=== PATIENT | female | born 2000 | race Caucasian/White ===

== ENCOUNTER 2025-01-23 00:02 | Emergency (ER) | payer OTHER ==
[2025-01-23 00:15] VITALS: TEMP 98.8; BMI 25.7
[2025-01-23] MEDS ORDERED: ACETAMINOPHEN INJECTION 100 ML ONE (00:58)
[2025-01-23] MEDS: morphine CARPU-JECT 4 MG/1 ML DISP.SYRIN IVPUSH ONE (01:46)
[2025-01-23] MEDS: ACETAMINOPHEN 1000 MG/100 ML BAG IVPB ONE (01:46)
[2025-01-23 01:50] LABS: ABSOLUTE IMMATURE GRANULOCYTES 0.03 x10^3/uL (0.0-0.031); BASOPHILS # 0.06 x10^3/uL (0.01-0.08); EOSINOPHIL % 0.4 % (0.7-5.8); EOSINOPHILS # 0.04 x10^3/uL (0.04-0.36); MCHC 33.7 g/dl (32.2-35.5); MEAN CELL VOLUME 91.2 fl (79.4-94.8); MEAN PLT VOLUME 10.8 fl (9.4-12.3); MONOCYTE # 0.79 x10^3/uL (0.24-0.86); MONOCYTE % 7.5 % (4.7-12.5); RDW 11.9 % (12.1-16.5)
[2025-01-23 02:07] LABS: GLUCOSE,RANDOM 89.0 mg/dL (74-106); TOT PROT 7.8 g/dl (6.4-8.2)
[2025-01-23 02:08] LABS: CO2 21.0 mmol/L (21-32); INR 1.17 (0.83-1.09); PROTHROMBIN TIME (PATIENT) 12.7 SEC (9.7-13.0)
[2025-01-23 02:10] LABS: ALK PHOS 77.0 U/L (40-150)
[2025-01-23 02:11] LABS: ACTIVATED PTT 28.1 SECONDS (25.2-36.5)
[2025-01-23 02:12] LABS: CREATININE 0.53 mg/dL (0.55-1.3); HCG,QUALITATIVE URINE Negative; SGOT/AST 32.0 U/L (5-34); SGPT/ALT 12.0 U/L (0-55)
[2025-01-23 02:23] LABS: URINE APPEARANCE CLOUDY; URINE COLOR DK YELLOW
[2025-01-23 02:24] LABS: URINE BILIRUBIN SMALL (NEGATIVE); URINE GLUCOSE (UA) NEGATIVE (NEGATIVE); URINE KETONE >=80 mg/dl (NEGATIVE)
[2025-01-23 02:25] LABS: URINE LEUK ESTERASE 1+ (NEGATIVE); URINE NITRITE NEGATIVE (NEGATIVE); URINE PROTEIN 2+ (NEGATIVE); URINE UROBILINOGEN 1.0 mg/dL (0.2-1.0)
[2025-01-23] MEDS ORDERED: KETOROLAC TROMETHAMINE 15 MG/ML VIAL ONE (04:25)
[2025-01-23] MEDS: KETOROLAC TROMETHAMINE 15 MG/ML VIAL IVPUSH ONE (04:37)
[2025-01-23 04:45] VITALS: BP 112/65; PULSE 70; RESP 20
== END 2025-01-23 04:48 | disposition home or self-care (01) ==
LOC: JER 00:02
PROC: 3E033NZ Introduction of Analgesics, Hypnotics, Sedatives into Peripheral Vein, Percutaneous Approach (ICD-10-PCS; principal; 2025-01-23)
PROC: 3E033NZ Introduction of Analgesics, Hypnotics, Sedatives into Peripheral Vein, Percutaneous Approach (ICD-10-PCS; 2025-01-23)
PROC: 3E0333Z Introduction of Anti-inflammatory into Peripheral Vein, Percutaneous Approach (ICD-10-PCS; 2025-01-23)
DX: N39.0 Urinary tract infection, site not specified (principal); R10.31 Right lower quadrant pain; R10.32 Left lower quadrant pain
CPT/HCPCS: 36415; 74177-TC; 76856-TC; 80053; 81003; 84703; 85025; 85610; 85730; 86850; 86900; 86901; 87077; 87086; 96374; 96375; 99285-25; Q9967